=== PATIENT | female | born 1985 | race Caucasian/White ===

== ENCOUNTER 2016-10-17 19:07 | Observation (INO) | payer BC ==
[~2016-10-17 19:07] MED LIST: PREN29TA PO; ZANT150T2 PO; [UNRECOGNIZED DRUG - CODE]
[2016-10-17] MEDS: LACTATED RINGER'S 1000 ML INJ 1,000 ML IV SCH (20:06)
[2016-10-17] MEDS ORDERED: ACETAMINOPHEN 325 MG TAB PO PRN (20:15)
[2016-10-17] MEDS ORDERED: SODIUM CHLORIDE 0.9% FLUSH 10 ML FLUSH IV FLUSH PRN (20:15)
[2016-10-17 20:33] VITALS: BP 100/53; PULSE 76
[2016-10-17 20:44] VITALS: RESP 18
[2016-10-17 20:45] VITALS: TEMP 98
[2016-10-17 20:51] LABS: AUTOMATED NEUTROPHIL # 7.9 TH/MM3 (1.8-7.7); BASOPHIL % 0.1 % (0.0-2.0); EOSINOPHIL % 0.3 % (0.0-4.0); HEMATOCRIT 31.9 % (35.0-46.0); HEMO FLAGS DIFF FINAL; LYMPH % 18.5 % (9.0-44.0); LYMPHOCYTE # 1.9 TH/MM3 (1.0-4.8); MEAN CELL VOLUME 89.1 FL (80.0-100.0); MEAN CORPUSCULAR HEMOGLOBIN 30.2 PG (27.0-34.0); MEAN CORPUSCULAR HGB CONC 33.9 % (32.0-36.0); MONO % 4.8 % (0.0-8.0); NEUT % 76.3 % (16.0-70.0); PLATELET COUNT 246 TH/MM3 (150-450); RED BLOOD COUNT 3.58 MIL/MM3 (4.00-5.30); WHITE BLOOD COUNT 10.4 TH/MM3 (4.0-11.0)
[2016-10-17] MEDS: SODIUM CHLORIDE 0.9% FLUSH 10 ML FLUSH IV FLUSH SCH (21:00)
[2016-10-17 21:05] LABS: BACTERIA, URINE RARE /hpf; BLOOD, URINE NEG (NEG); GLUCOSE,URINE NEG (NEG); KETONE, URINE NEG (NEG); MUCUS URINE FEW /lpf (OCC); NITRITE,URINE NEG (NEG); SQUAMOUS EPITHELIAL CELL URINE <1 /hpf (0-5); URINE COLOR YELLOW (YELLW/STRAW)
--- NOTE | 2016-10-17 21:05 | PD ---
HPI Chief Complaint contractions Date Seen: October 17, 2016 Travel History International Travel<30 Days: No Contact w/Intl Traveler<30Days: No Known Affected Area: No History of Present Illness HPI This is a 31y/o at 36w2d who presented to the [facility] with reports of contractions since 530p q 2-3 minutes apart, since arrival the contractions are q 7-10m apart. She denies vaginal bleeding or leakage of fluid with reports of active movements. Fetus is currently breech, she is scheduled for a ECV on 10/22. care complicated by: 1. Breech presenting fetus 2. h/o GDM in the last 3. Varicella non-immune Para: 1 : 2 Last Menstrual Period: October 17, 2016 History Past Medical History Medical History: Denies Significant Hx Obstetric History Obstetric History 11/14/12 39w Male [id number] Past Surgical History Surgical History: No Previous Surgery Family History Family History: Negative Social History Alcohol Use: No Tobacco Use: No Substance Abuse: No Allergies-Medications (Allergen,Severity, Reaction): Coded Allergies: No Known Allergies (Verified , 10/16/16) Home Meds Active Scripts Ranitidine (Zantac)150 Mg [id number] Mg PO BID #60 TAB Ref 6 Prov:Nannette WilhelmP 09/18/16 Simply[employer] Breast Pump/Dual 1 Mis Mis #1 EA .ROUTE DIRECTED Ref 0 Prov:Elvira Laguerre [facility] 07/23/16 W/O Vit A W/ Fe Carbo (Prenate Mini 18-0.6-0.4-350 mg)1 Cap Cap Sample #2 Prov:Elvira Laguerre [facility] 04/03/16 Reported Medications Vit-Iron Carbonyl ( Plus Iron 29-1 mg)1 Tab Tab1 Tab PO DAILY #30 TAB Ref 0 04/04/16 Review of Systems Except as stated in HPI: all other systems reviewed are Neg Physical Exam Vital Signs Date Time Temp Pulse Resp B/P Pulse Ox O2 Delivery O2 Flow Rate FiO2 10/17/16 20:44 18 10/17/16 20:33 76 100/53 Narrative GENERAL: Well-nourished, well-developed patient. SKIN: Warm and dry. HEAD: Normocephalic and atraumatic. EYES: No scleral icterus. No injection or drainage. ENT: No nasal drainage noted. Mucous membranes pink. Airway patent. NECK: Supple, trachea midline. No JVD. CARDIOVASCULAR: Regular rate and rhythm without murmurs, gallops, or rubs. RESPIRATORY: Breath sounds equal bilaterally. No accessory muscle use. BREASTS: Bilateral exam showed no masses , no retractions, no nipple discharge. ABDOMEN/GI: Abdomen soft, non-tender, bowel sounds present, no rebound, no guarding Gravid to 36 GENITOURINARY: VE: 1/50/-3/posterior Contractions: none FHT's: Category: overall Cat 1, 4 minutes deceleration with jamar to 50bpm, noted after patient came back from the bathroom, subsequent reflexive tachycardia Bedside us: active fetus, BREECH EXTREMITIES: No cyanosis or edema. BACK: Nontender without obvious deformity. No CVA tenderness. NEUROLOGICAL: Awake and alert. Motor and sensory grossly within normal limits. Five out of 5 muscle strength in all muscle groups. Normal speech. Data Data Orders Place In Observation (10/17/16 ) Diet Npo (10/18/16 Breakfast) Vital Signs (Adult) EILEEN.O2K-RAKEO AWAKE (10/17/16 20:06) Heart (10/17/16 20:06) Activity Bed Rest With Brp (10/17/16 20:06) Complete Blood Count With Diff (10/17/16 20:06) Urinalysis - C+S If Indicated (10/17/16 20:06) Lactated Ringer's 1000 Ml Inj (Lr 1000 M (10/17/16 20:06) Acetaminophen (Tylenol) (10/17/16 20:15) Yjgmlzpy-Zfi-Rcgkw-Iron Prenat (Stuartna (10/18/16 09:00) Sodium Chloride 0.9% Flush (Ns Flush) (10/17/16 21:00) Sodium Chloride 0.9% Flush (Ns Flush) (10/17/16 20:15) Hold Clot (10/17/16 20:06) Ob (2e) Additional Admit Info (10/17/16 20:07) Us Ob Bpp Wo Nst (10/17/16 ) Labs Laboratory Tests Test 10/17/16 20:30 White Blood Count 10.4 Red Blood Count 3.58 Hemoglobin 10.8 Hematocrit 31.9 Mean Corpuscular Volume 89.1 Mean Corpuscular Hemoglobin 30.2 Mean Corpuscular Hemoglobin 33.9 Concent Red Cell Distribution Width 14.0 Platelet Count 246 Mean Platelet Volume 8.5 Neutrophils (%) (Auto) 76.3 Lymphocytes (%) (Auto) 18.5 Monocytes (%) (Auto) 4.8 Eosinophils (%) (Auto) 0.3 Basophils (%) (Auto) 0.1 Neutrophils # (Auto) 7.9 Lymphocytes # (Auto) 1.9 Monocytes # (Auto) 0.5 Eosinophils # (Auto) 0.0 Basophils # (Auto) 0.0 CBC Comment DIFF FINAL Differential Comment MDM Medical Record Reviewed: Yes Interpretation(s) 31y/o at 36w2d with 4 minute FHR prolonged decelration with jamar to 50bpm. -Breech presenting fetus, scheduled for version on 10/22 Plan -Admit for OBS overnight for continuous monitoring -NPO -BPP in AM Diagnosis Diagnosis: Primary Impression: Non-reassuring electronic monitoring tracing Additional Impressions: Breech presentation on examination Qualified Code: O32.1XX0 - Breech presentation on examination, not applicable or unspecified fetus 36 weeks gestation of Suzie Raymond MD October 17, 2016 21:05
[2016-10-17 21:08] LABS: COMMENT (UR) CULT NOT INDICATED; CULTURE IF INDICATED CULT NOT INDICATED
--- NOTE | 2016-10-17 21:29 | HHI.HP ---
HPI Chief Complaint contractions Date Seen: October 17, 2016 Travel History International Travel<30 Days: No Contact w/Intl Traveler<30Days: No Known Affected Area: No History of Present Illness HPI This is a 31y/o at 36w2d who presented to the [facility] with reports of contractions since 530p q 2-3 minutes apart, since arrival the contractions are q 7-10m apart. She denies vaginal bleeding or leakage of fluid with reports of active movements. Fetus is currently breech, she is scheduled for a ECV on 10/22. care complicated by: 1. Breech presenting fetus 2. h/o GDM in the last 3. Varicella non-immune Para: 1 : 2 History Past Medical History Medical History: Denies Significant Hx Obstetric History Obstetric History 11/14/12 39w Male [id number] Past Surgical History Surgical History: No Previous Surgery Family History Family History: Negative Social History Alcohol Use: No Tobacco Use: No Substance Abuse: No Allergies-Medications (Allergen,Severity, Reaction): Coded Allergies: No Known Allergies (Verified , 10/16/16) Home Meds Active Scripts Ranitidine (Zantac)150 Mg [id number] Mg PO BID #60 TAB Ref 6 Prov:Nannette Wilhelm [facility] 09/18/16 [employer] Breast Pump/Dual 1 Mis Mis #1 EA .ROUTE DIRECTED Ref 0 Prov:Elvira Laguerre CN[facility] 07/23/16 W/O Vit A W/ Fe Carbo (Prenate Mini 18-0.6-0.4-350 mg)1 Cap Cap Sample #2 Prov:Elvira Laguerre CN[facility] 04/03/16 Reported Medications Vit-Iron Carbonyl ( Plus Iron 29-1 mg)1 Tab Tab1 Tab PO DAILY #30 TAB Ref 0 04/04/16 Review of Systems Except as stated in HPI: all other systems reviewed are Neg Physical Exam Vital Signs Date Time Temp Pulse Resp B/P Pulse Ox O2 Delivery O2 Flow Rate FiO2 10/17/16 20:44 18 10/17/16 20:33 76 100/53 Narrative GENERAL: Well-nourished, well-developed patient. SKIN: Warm and dry. HEAD: Normocephalic and atraumatic. EYES: No scleral icterus. No injection or drainage. ENT: No nasal drainage noted. Mucous membranes pink. Airway patent. NECK: Supple, trachea midline. No JVD. CARDIOVASCULAR: Regular rate and rhythm without murmurs, gallops, or rubs. RESPIRATORY: Breath sounds equal bilaterally. No accessory muscle use. BREASTS: Bilateral exam showed no masses , no retractions, no nipple discharge. ABDOMEN/GI: Abdomen soft, non-tender, bowel sounds present, no rebound, no guarding Gravid to 36 GENITOURINARY: VE: 1/50/-3/posterior Contractions: none FHT's: Category: overall Cat 1, 4 minutes deceleration with jamar to 50bpm, noted after patient came back from the bathroom, subsequent reflexive tachycardia Bedside us: active fetus, BREECH EXTREMITIES: No cyanosis or edema. BACK: Nontender without obvious deformity. No CVA tenderness. NEUROLOGICAL: Awake and alert. Motor and sensory grossly within normal limits. Five out of 5 muscle strength in all muscle groups. Normal speech. Data Data Vital Signs Reviewed: Yes Orders Place In Observation (10/17/16 ) Diet Npo (10/18/16 Breakfast) Vital Signs (Adult) EILEEN.N0Y-UJOSH AWAKE (10/17/16 20:06) Heart (10/17/16 20:06) Activity Bed Rest With Brp (10/17/16 20:06) Complete Blood Count With Diff (10/17/16 20:06) Urinalysis - C+S If Indicated (10/17/16 20:06) Lactated Ringer's 1000 Ml Inj (Lr 1000 M (10/17/16 20:06) Acetaminophen (Tylenol) (10/17/16 20:15) Fjthzakl-Xql-Xpseg-Iron Prenat (Stuartna (10/18/16 09:00) Sodium Chloride 0.9% Flush (Ns Flush) (10/17/16 21:00) Sodium Chloride 0.9% Flush (Ns Flush) (10/17/16 20:15) Hold Clot (10/17/16 20:06) Ob (2e) Additional Admit Info (10/17/16 20:07) Us Ob Bpp Wo Nst (10/17/16 ) Labs Laboratory Tests Test 10/17/16 20:30 White Blood Count 10.4 Red Blood Count 3.58 Hemoglobin 10.8 Hematocrit 31.9 Mean Corpuscular Volume 89.1 Mean Corpuscular Hemoglobin 30.2 Mean Corpuscular Hemoglobin 33.9 Concent Red Cell Distribution Width 14.0 Platelet Count 246 Mean Platelet Volume 8.5 Neutrophils (%) (Auto) 76.3 Lymphocytes (%) (Auto) 18.5 Monocytes (%) (Auto) 4.8 Eosinophils (%) (Auto) 0.3 Basophils (%) (Auto) 0.1 Neutrophils # (Auto) 7.9 Lymphocytes # (Auto) 1.9 Monocytes # (Auto) 0.5 Eosinophils # (Auto) 0.0 Basophils # (Auto) 0.0 CBC Comment DIFF FINAL Differential Comment Urine Color YELLOW Urine Turbidity CLEAR Urine pH 6.0 Urine Specific [place] 1.023 Urine Protein TRACE Urine Glucose (UA) NEG Urine Ketones NEG Urine Occult Blood NEG Urine Nitrite NEG Urine Bilirubin NEG Urine Urobilinogen LESS THAN 2.0 Urine Leukocyte Esterase NEG Urine RBC 1 Urine WBC 1 Urine Squamous Epithelial <1 Cells Urine Bacteria RARE Urine Mucus FEW Microscopic Urinalysis Comment CULT NOT INDICATED Band and Hold HOLD CLOT IN BB Assessment/Plan Problem List: (1) Non-reassuring electronic monitoring tracing Assessment and Plan 31y/o at 36w2d with 4 minute FHR prolonged decelration with jamar to 50bpm. -no evidence of PTL -Breech presenting fetus, scheduled for version on 10/22 Plan -Admit for OBS overnight for continuous monitoring -NPO -BPP in Suzie Raymond MD October 17, 2016 21:29
[2016-10-17 23:54] VITALS: RESP 18
[2016-10-17 23:58] VITALS: BP 101/49; PULSE 71; TEMP 97.8
[2016-10-18] MEDS ORDERED: ONDANSETRON HCL 4 MG/2 ML VIAL IV PUSH PRN (01:30)
[2016-10-18 01:32] VITALS: BP 113/52; PULSE 68; RESP 18; TEMP 98.2
[2016-10-18 05:43] VITALS: BP 100/61; PULSE 68
[2016-10-18 05:45] VITALS: RESP 18
[2016-10-18] MEDS: LACTATED RINGER'S 1000 ML INJ 1,000 ML IV SCH (05:46)
[2016-10-18 07:56] VITALS: RESP 20; TEMP 97.9
[2016-10-18 07:57] VITALS: BP 103/49; PULSE 77
[2016-10-18] MEDS: SODIUM CHLORIDE 0.9% FLUSH 10 ML FLUSH IV FLUSH SCH (09:00)
[2016-10-18] MEDS ORDERED: MULTIVIT/MIN/PREN/FOL AC/IRON PRENATAL TAB PO SCH (09:00)
--- NOTE | 2016-10-18 09:40 | PD.OB.ANTE ---
Subjective Diagnosis: (1) Non-reassuring electronic monitoring tracing Interval History 31y/o at 36w2d with 4 minute FHR prolonged deceleration with jamar to 50bpm. Overnight she was on continuous monitoring, active fetus, no decelerations, category 1 tracing. BPP this morning 01/07, KRISHAN 12.07, fetus in breech position. Version scheduled for 10/21 at 1pm, instructions given. Pt seen and examined this morning. AFVSS. She endorses movement, denies leakage of fluid, vaginal bleeding, abdominal pain, contractions. Objective Vital Signs Vital Signs Date Time Temp Pulse Resp B/P Pulse Ox O2 Delivery O2 Flow Rate FiO2 10/18/16 07:57 77 103/49 10/18/16 07:56 97.9 20 10/18/16 05:45 18 10/18/16 05:43 68 100/61 10/18/16 01:32 98.2 68 18 113/52 10/17/16 23:58 97.8 71 101/49 10/17/16 23:54 18 10/17/16 20:45 98.0 10/17/16 20:44 18 10/17/16 20:33 76 100/53 Lab & Micro Results Test 10/17/16 20:30 White Blood Count 10.4 TH/MM3 Red Blood Count 3.58 MIL/MM3 Hemoglobin 10.8 GM/DL Hematocrit 31.9 % Mean Corpuscular Volume 89.1 FL Mean Corpuscular Hemoglobin 30.2 PG Mean Corpuscular Hemoglobin 33.9 % Concent Red Cell Distribution Width 14.0 % Platelet Count 246 TH/MM3 Mean Platelet Volume 8.5 FL Neutrophils (%) (Auto) 76.3 % Lymphocytes (%) (Auto) 18.5 % Monocytes (%) (Auto) 4.8 % Eosinophils (%) (Auto) 0.3 % Basophils (%) (Auto) 0.1 % Neutrophils # (Auto) 7.9 TH/MM3 Lymphocytes # (Auto) 1.9 TH/MM3 Monocytes # (Auto) 0.5 TH/MM3 Eosinophils # (Auto) 0.0 TH/MM3 Basophils # (Auto) 0.0 TH/MM3 CBC Comment DIFF FINAL Differential Comment Urine Color YELLOW Urine Turbidity CLEAR Urine pH 6.0 Urine Specific [place] 1.023 Urine Protein TRACE mg/dL Urine Glucose (UA) NEG mg/dL Urine Ketones NEG mg/dL Urine Occult Blood NEG Urine Nitrite NEG Urine Bilirubin NEG Urine Urobilinogen LESS THAN 2.0 MG/DL Urine Leukocyte Esterase NEG Urine RBC 1 /hpf Urine WBC 1 /hpf Urine Squamous Epithelial <1 /hpf Cells Urine Bacteria RARE /hpf Urine Mucus FEW /lpf Microscopic Urinalysis Comment CULT NOT INDICATED Band and Hold HOLD CLOT IN BB Physical Exam GENERAL: Well-nourished, well-developed patient. CARDIOVASCULAR: Regular rate and rhythm without murmurs, gallops, or rubs. RESPIRATORY: Breath sounds equal bilaterally. No accessory muscle use. ABDOMEN/GI: Abdomen soft, non-tender. GENITOURINARY: External Genitalia: intact and normal in appearance Dilatation: 1 Effacement: 50% Station: -3 Presentation: Breech Membranes: Intact Uterine Contractions: absent FHT's: Category: 1 Baseline: 140 Reactive: + Variability: Moderate Decels: Absent EXTREMITIES: No cyanosis or edema, non-tender, without signs of DVT. Assessment and Plan Problem List: (1) Non-reassuring electronic monitoring tracing Status: Acute Assessment and Plan 31y/o at 36w3d with 4 minute FHR prolonged deceleration with jamar to 50bpm on 10/17. -Breech presenting fetus, scheduled for version on 10/[address] Lewis -Category 1 tracing, no additional prolonged decelerations overnight -no evidence of PTL -BPP 8/, KRISHAN 12.07 -AC: <5%, Overall 22% -Continue routine care Jeison Sanchez MD R2 October 18, 2016 09:40
--- NOTE | 2016-10-18 09:58 | HHI.DCPOC ---
Discharge Care Plan Diagnosis: (1) Breech presentation (2) Non-reassuring electronic monitoring tracing Report Symptoms to Your Doctor -Temperate above 100.5 degrees -Redness, of incision or excessive or foul smelling drainage -Unusual pain or calf pain -Increased vaginal bleeding -Painful or difficulty urinating -Feelings of extreme sadness or anxiety after 2 weeks Goals to Promote Your Health * To prevent worsening of your condition and complications * To maintain your health at the optimal level Directions to Meet Your Goals Take your medications as prescribed Follow your dietary instruction Follow activity as directed Ensure plenty of rest for recovery Drink fluids for hydration Keep your appointments as scheduled Take your immunizations and boosters as scheduled If your symptoms worsen call your PCP, if no PCP go to Urgent Care Center or Emergency Room Smoking is Dangerous to Your Health. Avoid second hand smoke Call the 24-hour crisis hotline for domestic abuse at Jeison Sanchez MD R2 October 18, 2016 09:58
== END 2016-10-18 11:00 | disposition home or self-care (01) ==
LOC: HOBED 19:07 → H2EA 20:08
PROVIDERS: ADMIT Obstetrics & Gynecology; ATTEND Obstetrics & Gynecology
DX: O32.1XX0 Maternal care for breech presentation, not applicable or unspecified (principal); O76 Abnormality in fetal heart rate and rhythm complicating labor and delivery; Z3A.36 36 weeks gestation of pregnancy; Z86.32 Personal history of gestational diabetes
CPT/HCPCS: 59025; 76815; 76816; 76819; 81001; 85025; 99284; G0378; J7120

== ENCOUNTER 2016-10-21 10:54 | Observation (INO) | payer BC ==
--- NOTE | 2016-10-21 11:32 | HHI.HP ---
HPI Chief Complaint Patient here for version Date Seen: October 21, 2016 Time Seen: 11:29 Travel History International Travel<30 Days: No Contact w/Intl Traveler<30Days: No Known Affected Area: No History of Present Illness HPI Patient is a 31-year-old who is at 37 weeks today based on an EDC of November 11, 2016, here for external cephalic version. Patient was noted to have a breech presentation was scheduled for the version and she wishes to have the possibility of a vaginal delivery given her successful history of a prior vaginal delivery. Patient has No complaints today at this time she was monitored on October 17 for some contractions overnight but was sent home the next day cervix at that time was 1 cm. Para: 1 : 2 History Past Medical History Medical History: Denies Significant Hx Obstetric History Obstetric History Spontaneous vaginal delivery 2013 delivery of a male child 6 lbs. 11 oz. Past Surgical History Surgical History: No Previous Surgery Family History Family History: Negative Social History Alcohol Use: No Tobacco Use: No Substance Abuse: No Allergies-Medications (Allergen,Severity, Reaction): Coded Allergies: No Known Allergies (Verified , 10/16/16) Home Meds Active Scripts Ranitidine (Zantac)150 Mg [id number] Mg PO BID #60 TAB Ref 6 Prov:Nannette Wilhelm 09/18/16 [employer] Breast Pump/Dual 1 Mis Mis #1 EA .ROUTE DIRECTED Ref 0 Prov:Elvira Laguerre [facility] 07/23/16 W/O Vit A W/ Fe Carbo (Prenate Mini 18-0.6-0.4-350 mg)1 Cap Cap Sample #2 Prov:Elvira Laguerre [facility] 04/03/16 Reported Medications Vit-Iron Carbonyl ( Plus Iron 29-1 mg)1 Tab Tab1 Tab PO DAILY #30 TAB Ref 0 04/04/16 Review of Systems Except as stated in HPI: all other systems reviewed are Neg Physical Exam Narrative GENERAL: Well-nourished, well-developed patient. SKIN: Warm and dry. HEAD: Normocephalic and atraumatic. CARDIOVASCULAR: Regular rate and rhythm without murmurs, gallops, or rubs. RESPIRATORY: Breath sounds equal bilaterally. No accessory muscle use. ABDOMEN/GI: Abdomen soft, non-tender, bowel sounds present, no rebound, no guarding Gravid to [-36] weeks size Fundal Height: [-] GENITOURINARY: External Genitalia: intact and normal in appearance BUS glands: [-] Deferred Cervix: [-] Dilatation: [-] Effacement: [-] Station: [-] Presentation: [-] By ultrasound the baby is in a complete breech presentation, with an KRISHAN of 9 Membranes: [intact or ruptured] intact Uterine Contractions: [-] None FHT's: Category: [1-] Baseline: [-130] Reactive: [Moderate-] Variability: [-Moderate] Decels: [-Absent] EXTREMITIES: No cyanosis or edema. BACK: Nontender without obvious deformity. No CVA tenderness. NEUROLOGICAL: Awake and alert. Motor and sensory grossly within normal limits. Five out of 5 muscle strength in all muscle groups. Normal speech. Data Data Vital Signs Reviewed: Yes Assessment/Plan Assessment and Plan I discussed external cephalic version with the patient and her in detail after performing an ultrasound to document complete breech presentation and normal amniotic fluid index. heart rate was category 1 tracing with a baseline of 140 some mild irritability noted but no contractions. Patient was consented for external cephalic version understands the possibilities of trauma to the , initiation of labor, injury to the placenta, injury to the umbilical cord, and placental separation, rupture membranes. Patient states that she will be given terbutaline and fentanyl and attempts to mary the patient would be followed by monitoring. After terbutaline and fentanyl were given attempts at external cephalic version were accomplished using ultrasound guidance and we were unable to pull the breech out of the pelvis although the upper body and the head were easily amenable to movement. heart rate was stable throughout procedure and the version was not successful. Patient will be followed for the next hour with heart rate monitoring and will be set up for section at greater than or equal to 39 weeks gestation. Waleska Lewis MD October 21, 2016 11:32
[2016-10-21] MEDS ORDERED: LACTATED RINGER'S 1000 ML INJ 1,000 ML IV SCH (11:43)
[2016-10-21] MEDS ORDERED: TERBUTALINE INJ 1 MG/ML AMP SQ ONE (11:45)
--- NOTE | 2016-10-21 13:56 | HHI.DCPOC ---
Discharge Care Plan Diagnosis: (1) Breech presentation (2) Third trimester Report Symptoms to Your Doctor -Temperate above 100.5 degrees -Redness, of incision or excessive or foul smelling drainage -Unusual pain or calf pain -Increased vaginal bleeding -Painful or difficulty urinating -Feelings of extreme sadness or anxiety after 2 weeks Goals to Promote Your Health * To prevent worsening of your condition and complications * To maintain your health at the optimal level Directions to Meet Your Goals Take your medications as prescribed Follow your dietary instruction Follow activity as directed Ensure plenty of rest for recovery Drink fluids for hydration Keep your appointments as scheduled Take your immunizations and boosters as scheduled If your symptoms worsen call your PCP, if no PCP go to Urgent Care Center or Emergency Room Smoking is Dangerous to Your Health. Avoid second hand smoke Call the 24-hour crisis hotline for domestic abuse at Jeison Sanchez MD R2 October 21, 2016 13:56
== END 2016-10-21 15:00 | disposition home or self-care (01) ==
LOC: H2EB 10:54
PROVIDERS: ADMIT Obstetrics & Gynecology Obstetrics; ATTEND Obstetrics & Gynecology Obstetrics
DX: O32.1XX0 Maternal care for breech presentation, not applicable or unspecified (principal); Z3A.37 37 weeks gestation of pregnancy
CPT/HCPCS: 59412; G0378; J3010; J3105; 59025; 76815; 99283

== ENCOUNTER 2016-10-30 12:48 | Inpatient (IN) | payer BC ==
[~2016-10-30] VITALS: Ht 162.6 cm; Wt 76.2 kg
[2016-11-07] VITALS (7 sets, daily range): BP systolic 119–136; BP diastolic 56–89; PULSE 75–89; RESP 16; TEMP 97.7–98.7; O2SAT 99–100
[2016-11-07] MEDS ORDERED: CITRIC ACID-SODIUM CITRATE LIQ 30 ML UDC PO SCH ×2 (06:30→09:45)
[2016-11-07] MEDS ORDERED: LACTATED RINGER'S 1000 ML IV SCH ×2 (06:30)
[2016-11-07] MEDS ORDERED: LACTATED RINGER'S 1000 ML IV ONE (06:30)
[2016-11-07] MEDS ORDERED: ceFAZolin 2 GM PREMIX 50 ML IV SCH ×2 (06:30→09:15)
[2016-11-07 07:22] LABS: AUTOMATED NEUTROPHIL # 5.1 TH/MM3 (1.8-7.7); BASOPHIL % 0.3 % (0.0-2.0); EOSINOPHIL % 0.6 % (0.0-4.0); HEMATOCRIT 32.2 % (35.0-46.0); HEMO FLAGS DIFF FINAL; LYMPH % 29.8 % (9.0-44.0); LYMPHOCYTE # 2.4 TH/MM3 (1.0-4.8); MEAN CORPUSCULAR HEMOGLOBIN 29.4 PG (27.0-34.0); MONO % 6.2 % (0.0-8.0); NEUT % 63.1 % (16.0-70.0); PLATELET COUNT 242 TH/MM3 (150-450); RED BLOOD COUNT 3.62 MIL/MM3 (4.00-5.30); RED CELL DISTRIBUTION WIDTH 14.1 % (11.6-17.2); WHITE BLOOD COUNT 8.1 TH/MM3 (4.0-11.0)
[2016-11-07 07:24] LABS: BACTERIA, URINE FEW /hpf; BLOOD, URINE NEG (NEG); COMMENT (UR) CULT NOT INDICATED; CULTURE IF INDICATED CULT NOT INDICATED; GLUCOSE,URINE NEG (NEG); KETONE, URINE NEG (NEG); MUCUS URINE MANY /lpf (OCC); NITRITE,URINE NEG (NEG); SQUAMOUS EPITHELIAL CELL URINE 2 /hpf (0-5); URINE COLOR YELLOW (YELLW/STRAW)
[2016-11-07] MEDS ORDERED: ePHEDrine/NS 25 MG/5 ML SYR ONE (08:06)
[2016-11-07] MEDS ORDERED: LACTATED RINGER'S 1000 ML INJ 1,000 ML IV ONE (08:06)
[2016-11-07] MEDS ORDERED: OXYTOCIN 10 UNIT/ML AMP ONE (08:06)
[2016-11-07] MEDS ORDERED: MORPHINE SULFATE PF 5 MG/10 ML VIAL ONE (08:06)
[2016-11-07] MEDS ORDERED: ONDANSETRON HCL 4 MG/2 ML VIAL ONE (08:06)
--- NOTE | 2016-11-07 08:14 | HHI.HP ---
HPI Chief Complaint Patient here for attempted version if failed will perform CS Date Seen: Nov 07, 2016 Time Seen: 07:50 Travel History International Travel<30 Days: No Contact w/Intl Traveler<30Days: No Known Affected Area: No History of Present Illness HPI 31 yo breech infant for version if unsucessful for CS Para: 1 : 2 History Past Medical History Medical History: Denies Significant Hx Obstetric History Obstetric History x1 Past Surgical History Surgical History: No Previous Surgery Family History Family History: Negative Social History Alcohol Use: No Tobacco Use: No Substance Abuse: No Allergies-Medications (Allergen,Severity, Reaction): Coded Allergies: No Known Allergies (Verified , 10/30/16) Home Meds Active Scripts Simply[employer] Breast Pump/Dual 1 Mis Mis #1 EA .ROUTE DIRECTED Ref 0 Prov:Elvira Laguerer CNM [facility] 07/23/16 Reported Medications Vit-Iron Carbonyl ( Plus Iron 29-1 mg)1 Tab Tab1 Tab PO DAILY #30 TAB Ref 0 04/04/16 Discontinued Scripts Ranitidine (Zantac)150 Mg [id number] Mg PO BID #60 TAB Ref 6 Prov:Nannette WilhelmP 09/18/16 W/O Vit A W/ Fe Carbo (Prenate Mini 18-0.6-0.4-350 mg)1 Cap Cap Sample #2 Prov:Elvira Laguerre CNM [facility] 04/03/16 Review of Systems Except as stated in HPI: all other systems reviewed are Neg Physical Exam Narrative GENERAL: Well-nourished, well-developed patient. SKIN: Warm and dry. HEAD: Normocephalic and atraumatic. EYES: No scleral icterus. No injection or drainage. ENT: No nasal drainage noted. Mucous membranes pink. Airway patent. NECK: Supple, trachea midline. No JVD. CARDIOVASCULAR: Regular rate and rhythm without murmurs, gallops, or rubs. RESPIRATORY: Breath sounds equal bilaterally. No accessory muscle use. BREASTS: Bilateral exam showed no masses , no retractions, no nipple discharge. ABDOMEN/GI: Abdomen soft, non-tender, bowel sounds present, no rebound, no guarding Gravid to [-] weeks size Fundal Height: [-] GENITOURINARY: External Genitalia: intact and normal in appearance BUS glands: [-] Cervix: [-] Dilatation: 2 Effacement: [-] Station: [-] Presentation: [-] Membranes: [intact Uterine Contractions: [-] FHT's: Category:1 Baseline: [-] Reactive: [-] Variability: [-] Decels: [-] EXTREMITIES: No cyanosis or edema. BACK: Nontender without obvious deformity. No CVA tenderness. NEUROLOGICAL: Awake and alert. Motor and sensory grossly within normal limits. Five out of 5 muscle strength in all muscle groups. Normal speech. Data Data Vital Signs Reviewed: Yes Orders Lactated Ringer's 1000 Ml Inj (Lr 1000 M (11/07/16 06:30) Lactated Ringer's 1000 Ml Inj (Lr 1000 M (11/07/16 06:30) Citric Acid-Sodium Citrate Liq (Bicitra (11/07/16 06:30) Cefazolin 2 Gm Premix (Ancef 2 Gm Premix (11/07/16 06:30) Lactated Ringer's 1000 Ml Inj (Lr 1000 M (11/07/16 06:30) Complete Blood Count With Diff (11/07/16 06:56) Type And Screen (11/07/16 06:56) Urinalysis - C+S If Indicated (11/07/16 06:56) Morphine Pf Inj (Duramorph Pf 0.5 Mg/Ml (11/07/16 08:06) Ephedrine/Ns 25 Mg/5 Ml Syr (Ephedrine/N (11/07/16 08:06) Ondansetron Inj (Zofran Inj) (11/07/16 08:06) Oxytocin Inj (Pitocin Inj) (11/07/16 08:06) Fentanyl Inj (Fentanyl Inj) (11/07/16 08:07) Admit To Inpatient (11/07/16 ) Code Status (11/07/16 08:06) Vital Signs (Adult) .ON ADMISSION (11/07/16 08:06) Activity Oob Ad Kendra (11/07/16 08:06) Heart (11/07/16 08:06) Urinary Catheter Management EILEEN.Q8H (11/07/16 08:06) ^ Preps (11/07/16 08:06) Scd / Abraham / Foot Pump EILEEN.QSHIFT (11/07/16 08:06) ^ Ultrasound For Locatio (11/07/16 08:06) Diet Npo (11/07/16 Breakfast) Lactated Ringer's 1000 Ml Inj (Lr 1000 M (11/07/16 08:06) Lactated Ringer's 1000 Ml Inj (Lr 1000 M (11/07/16 08:36) Cefazolin 2 Gm Premix (Ancef 2 Gm Premix (11/07/16 09:15) Citric Acid-Sodium Citrate Liq (Bicitra (11/07/16 09:45) Inpatient Certification (11/07/16 ) Labs Laboratory Tests Test 11/07/16 11/07/16 06:30 06:40 Urine Color YELLOW Urine Turbidity HAZY Urine pH 6.0 Urine Specific [place] 1.024 Urine Protein TRACE Urine Glucose (UA) NEG Urine Ketones NEG Urine Occult Blood NEG Urine Nitrite NEG Urine Bilirubin NEG Urine Urobilinogen LESS THAN 2.0 Urine Leukocyte Esterase MOD Urine RBC 2 Urine WBC 5 Urine Squamous Epithelial 2 Cells Urine Bacteria FEW Urine Mucus MANY Microscopic Urinalysis Comment CULT NOT INDICATED White Blood Count 8.1 Red Blood Count 3.62 Hemoglobin 10.6 Hematocrit 32.2 Mean Corpuscular Volume 89.0 Mean Corpuscular Hemoglobin 29.4 Mean Corpuscular Hemoglobin 33.0 Concent Red Cell Distribution Width 14.1 Platelet Count 242 Mean Platelet Volume 8.4 Neutrophils (%) (Auto) 63.1 Lymphocytes (%) (Auto) 29.8 Monocytes (%) (Auto) 6.2 Eosinophils (%) (Auto) 0.6 Basophils (%) (Auto) 0.3 Neutrophils # (Auto) 5.1 Lymphocytes # (Auto) 2.4 Monocytes # (Auto) 0.5 Eosinophils # (Auto) 0.0 Basophils # (Auto) 0.0 CBC Comment DIFF FINAL Differential Comment Blood Type A POSITIVE Antibody Screen NEGATIVE Assessment/Plan Problem List: (1) Breech presentation (2) 39 weeks gestation of Discharge Planning for CS if version fails Jayy Deshpande MD Nov 07, 2016 08:14
--- NOTE | 2016-11-07 08:17 | HHI.PR ---
Subjective Remarks patient had attempted version 2 weeks ago and now repeat attempt was unsucessful. She has agreed for CS Objective Result Diagram: 11/07/16 0640 Assessment and Plan Problem List: (1) 39 weeks gestation of Status: Acute (2) Breech presentation Status: Acute (3) Breech presentation, no version Status: Acute Jayy Deshpande MD Nov 07, 2016 08:17
[2016-11-07] MEDS ORDERED: LACTATED RINGER'S 1000 ML INJ 1,000 ML IV SCH (08:36)
[2016-11-07] MEDS ORDERED: OXYTOCIN 30 UNITS-500ML PREMIX 500 ML IV ONE (09:15)
[2016-11-07] MEDS ORDERED: KETOROLAC TROMETHAMINE 60 MG/2 ML (IM) VIAL IM PRN (09:15)
[2016-11-07] MEDS ORDERED: SIMETHICONE 80 MG CHEWABLE TAB PO PRN (09:15)
[2016-11-07] MEDS ORDERED: SODIUM CHLORIDE 0.9% FLUSH 10 ML FLUSH IV FLUSH PRN (09:15)
--- NOTE | 2016-11-07 09:15 | PD.OB.DELI ---
Procedure Note Section Procedure Pre Op Diagnosis: (1) 39 weeks gestation of (2) Breech presentation, no version Post Op Diagnosis: (1) 39 weeks gestation of (2) Breech presentation, no version Performed by Jayy Deshpande Procedure: Primary Low Transverse Sec Indication for delivery: malposition Informed consent obtained: For anesthesia, For procedure Confirmed correct: Patient, Procedure, Time-out taken Anesthesia: Spinal Urinary catheter: Inserted using sterile technique, To dependent drainage Sterile preparation: Duraprep Position: Supine with wedge to right side Operative Features Skin Incision: Pfannenstiel Uterine Incision: Low transverse w/knife / blunt ext Membranes Ruptured: Artificially Presentation: Occiput anterior Delivery of infant: Uneventful : Male, Single One Minute : 8 Five Minute : 9 Weight: 6# 15 oz Status of : Viable Medications: Antibiotics Estimated blood loss: 500 Procedure tolerated: Well Maternal Condition: Stable Condition: Stable Jayy Deshpande MD Nov 07, 2016 09:15
[2016-11-07] MEDS ORDERED: OXYTOCIN 30 UNITS-500ML PREMIX 500 ML ONE (09:38)
[2016-11-07] MEDS ORDERED: ACETAMINOPHEN 1000 MG/100 ML VIAL IV ONE (09:39)
[2016-11-07] MEDS ORDERED: HYDROmorphone HCL PF 2 MG/ML VIAL ONE (10:17)
[2016-11-07] MEDS ORDERED: KETOROLAC TROMETHAMINE 30 MG/ML (IVP) VIAL ONE (10:19)
[2016-11-07] MEDS ORDERED: diphenhydrAMINE HCL 50 MG/ML VIAL IV PRN (13:45)
--- NOTE | 2016-11-07 14:14 | MP ---
cc: JULIANA DESHPANDE DATE OF SURGERY 11/07/2016 PROCEDURE Primary low transverse section. PREOPERATIVE DIAGNOSIS Breech, failed version, 39 weeks. POSTOPERATIVE DIAGNOSIS Breech, failed version, [address] Juliana Deshpande ESTIMATED BLOOD LOSS 500 cc. ANESTHESIA Spinal, Dr. Elmer Naranjo COMPLICATIONS None. FINDINGS Live male infant, marla breech presentation. PROCEDURE IN DETAIL After informed consent the patient taken to the operating room where she placed under spinal anesthesia, placed in supine position, left lateral tilt. Time-out was taken. After adequate anesthesia assured and the patient was prepped and draped a Pfannenstiel skin incision was carried sharply through the skin to the fascia. Fascia nicked in the midline. The incision was extended laterally using Maldonado scissors. Rectus muscles dissected off the fascia with sharp and blunt dissection. Rectus muscle in their midline. Peritoneum was entered bluntly with a finger. The incision was extended laterally using blunt traction. A bladder flap was created by dissecting bladder off the lower uterine segment. Bladder blade was replaced to protect the bladder. Low-transverse uterine incision was then made, carried sharply to the uterine cavity. Clear fluid was noted. Incision was extended laterally using blunt traction upward and downward. Hand was placed in the uterus and the 's buttocks was guided through the incision, using fundal pressure, the 's buttocks delivered up to the level where the legs were flexed across the chest and delivered. The was rotated to the right and left arm was flexed across the chest and delivered. The infant was rotated to the left and right arm was flexed across the chest and delivered. Marceau maneuver was performed and the head readily delivered. Nose and mouth suctioned well. Infant was not readily crying so a 45-second cord clamp delay was not performed but 30 seconds was attempted. We clamped, cut and tied and handed pediatrics in attendance. Cord blood was collected. Placenta was delivered manually. Uterus exteriorized, wiped free from all remaining products of conception. The uterine incision was then closed with a running locking stitch of chromic suture. A second imbricating layer was placed for strength and hemostasis. Uterus placed back in the abdomen, noted to be hemostatic. The perineum was closed with Vicryl suture. The fascia was closed with Vicryl suture. The skin was closed with subcuticular stitch. Each layer was noted to be hemostatic prior to closure and the patient tolerated the procedure well. MD KIRAN Viveros/VENKATA /9:19 AM /2:00 PM
[2016-11-07] MEDS: LACTATED RINGER'S 1000 ML INJ 1,000 ML IV SCH (15:26)
[2016-11-07] MEDS ORDERED: EPIDURAL-NALOXONE HCL 0.4 MG/ML AMP IV PRN (15:30)
[2016-11-07] MEDS ORDERED: EPIDURAL-DO NOT ADMINISTER ANTICOAGULANTS PRN (15:30)
[2016-11-07] MEDS ORDERED: EPIDURAL-DIPHENHYDRAMINE HCL 50 MG/ML VIAL IV PUSH PRN (15:30)
[2016-11-07] MEDS ORDERED: EPIDURAL-DIPHENHYDRAMINE HCL 50 MG CAP PO PRN (15:30)
[2016-11-07] MEDS ORDERED: EPIDURAL-NO SYSTEMIC NARCOTICS PRN (15:30)
[2016-11-07] MEDS: oxyCODONE/ACETAMINOPHEN 5 MG/325 MG TAB PO PRN ×2 (16:28→21:03)
[2016-11-07] MEDS: IBUPROFEN 600 MG TAB PO PRN ×2 (16:28→23:04)
[2016-11-07] MEDS ORDERED: OXYTOCIN 30 UNITS-500ML PREMIX 500 ML IV PRN (19:15)
[2016-11-07] MEDS ORDERED: SODIUM CHLORIDE 0.9% FLUSH 10 ML FLUSH IV FLUSH SCH (21:00)
[2016-11-08] MEDS: LACTATED RINGER'S 1000 ML INJ 1,000 ML IV SCH (00:12)
[2016-11-08] MEDS: oxyCODONE/ACETAMINOPHEN 5 MG/325 MG TAB PO PRN ×5 (01:35→20:36)
[2016-11-08] MEDS: IBUPROFEN 600 MG TAB PO PRN ×3 (05:19→20:36)
[2016-11-08 07:06] LABS: AUTOMATED NEUTROPHIL # 6.5 TH/MM3 (1.8-7.7); BASOPHIL % 0.2 % (0.0-2.0); EOSINOPHIL # 0.1 TH/MM3 (0-0.4); EOSINOPHIL % 0.6 % (0.0-4.0); HEMATOCRIT 26.1 % (35.0-46.0); HEMO FLAGS DIFF FINAL; LYMPH % 22.4 % (9.0-44.0); MEAN CELL VOLUME 89.4 FL (80.0-100.0); MEAN CORPUSCULAR HEMOGLOBIN 30.6 PG (27.0-34.0); MEAN CORPUSCULAR HGB CONC 34.3 % (32.0-36.0); NEUT % 71.8 % (16.0-70.0); PLATELET COUNT 163 TH/MM3 (150-450); RED BLOOD COUNT 2.92 MIL/MM3 (4.00-5.30); RED CELL DISTRIBUTION WIDTH 14.3 % (11.6-17.2); WHITE BLOOD COUNT 9.1 TH/MM3 (4.0-11.0)
--- NOTE | 2016-11-08 09:04 | HHI.OB ---
Subjective Post Day: 1 Remarks doing well pod #1 Objective Vitals/I&O Vital Signs Date Time Temp Pulse Resp B/P Pulse Ox O2 Delivery O2 Flow Rate FiO2 11/07/16 10:49 97.7 75 16 136/86 11/07/16 10:30 80 128/75 11/07/16 10:30 16 100 11/07/16 10:15 89 121/72 11/07/16 10:15 16 99 11/07/16 10:00 98.7 81 16 120/89 100 11/07/16 09:45 16 99 11/07/16 09:45 80 119/56 11/07/16 09:27 81 16 120/58 100 11/07/16 09:15 100 11/07/16 09:15 97.9 11/07/16 09:15 81 16 122/58 Objective Remarks GENERAL: Well-nourished, well-developed patient. ABDOMEN/GI: Abdomen soft, non-tender. Fundus: Firm, non-tender at umbilicus. GENITOURINARY: Light to moderate bleeding. EXTREMITIES: No cyanosis or edema, non-tender, without signs of DVT. Medications and IVs Current Medications Medications (Trade) Dose Ordered Sig/Eugenio Route Start Time Stop Time Status Last Admin (Lr 1000 ml Inj) 1,000 ml @ 100 mls/hr Q10H IV 11/07/16 14:12 11/08/16 10:11 11/07/16 15:26 (NS Flush) 2 ml BID IV FLUSH 11/07/16 21:00 (NS Flush) 2 ml UNSCH PRN IV FLUSH 11/07/16 09:15 (Mylicon Chew) 80 mg QID PRN PO 11/07/16 09:15 (Motrin) 600 mg Q6H PRN PO 11/07/16 09:15 11/08/16 05:19 (Toradol Inj) 30 mg Q6H PRN IM 11/07/16 09:15 11/08/16 09:14 (Percocet 5-325 Mg) 1 tab Q4H PRN PO 11/07/16 09:15 11/08/16 05:19 (Percocet 5-325 Mg) 2 tab Q4H PRN PO 11/07/16 09:15 (M-M-R Ii Inj) 0.5 ml ONCE ONCE SQ 11/08/16 16:00 11/08/16 16:01 (Boostrix Inj) 0.5 ml ONCE ONCE IM 11/08/16 16:00 11/08/16 16:01 (Benadryl Inj) 25 mg Q6H PRN IV 11/07/16 13:45 11/07/16 13:50 Miscellaneous Information NO SYSTEMIC NARCOTICS TO BE GIVEN FO... UNSCH PRN .XX 11/07/16 15:30 11/08/16 15:29 (Narcan Inj) 0.4 mg UNSCH PRN IV 11/07/16 15:30 11/08/16 15:29 (Benadryl Inj) 25 mg Q6H PRN IV PUSH 11/07/16 15:30 11/08/16 15:29 (Benadryl) 50 mg Q6H PRN PO 11/07/16 15:30 11/08/16 15:29 Miscellaneous Information ALL NURSING DEPARTMENTS UNSCH PRN .XX 11/07/16 15:30 11/08/16 15:29 Assessment/Plan Problem List: (1) Breech presentation (2) 39 weeks gestation of (3) Delivered by section Discharge Planning CS pod #1 Jayy Deshpande MD Nov 08, 2016 09:04
[2016-11-08] MEDS ORDERED: OXYC1TAB63 PO (09:06)
--- NOTE | 2016-11-08 09:06 | HHI.DCPOC ---
Discharge Care Plan Diagnosis: (1) Delivered by section Report Symptoms to Your Doctor -Temperature above 100.5 degrees -Redness, of incision or excessive or foul smelling drainage -Unusual pain or calf pain -Increased vaginal bleeding -Painful or difficulty urinating -Feelings of extreme sadness or anxiety after 2 weeks Goals to Promote Your Health * To prevent worsening of your condition and complications * To maintain your health at the optimal level Directions to Meet Your Goals Take your medications as prescribed Follow your dietary instruction Follow activity as directed Ensure plenty of rest for recovery Drink fluids for hydration Keep your appointments as scheduled Take your immunizations and boosters as scheduled If your symptoms worsen call your PCP, if no PCP go to Urgent Care Center or Emergency Room Smoking is Dangerous to Your Health. Avoid second hand smoke Call the 24-hour crisis hotline for domestic abuse at Jayy Deshpande MD Nov 08, 2016 09:06
[2016-11-08] MEDS: DIPHTH/TETANUS/ACEL PERTUSSIS (BOOSTER) 0.5 ML VIAL/PFS IM ONE ×2 (09:33→13:45)
[2016-11-08] MEDS ORDERED: MEASLES, MUMPS, RUBELLA VACCINE 0.5 ML VIAL SQ ONE (16:00)
[2016-11-09] MEDS: oxyCODONE/ACETAMINOPHEN 5 MG/325 MG TAB PO PRN ×6 (00:43→21:54)
[2016-11-09] MEDS: IBUPROFEN 600 MG TAB PO PRN ×3 (05:15→21:54)
[2016-11-09] MEDS: DOCUSATE SODIUM 50 MG/SENNA 8.6 MG TAB PO SCH (09:18)
--- NOTE | 2016-11-09 10:37 | HHI.OB ---
Subjective Post Operative Day: 2 Remarks Pt doing well, good pain control, ambulating well, tolerating po Objective Result Diagram: 11/08/16 0606 Objective Remarks GENERAL: Well-nourished, well-developed patient. CARDIOVASCULAR: Regular rate and rhythm without murmurs, gallops, or rubs. RESPIRATORY: Breath sounds equal bilaterally. No accessory muscle use. ABDOMEN/GI: Abdomen soft, non-tender, bowel sounds present. Incision: Clean, dry and intact. Fundus: Firm, non-tender at umbilicus. GENITOURINARY: Light to moderate bleeding. EXTREMITIES: No cyanosis or edema, non-tender, without signs of DVT. Medications and IVs Current Medications Medications (Trade) Dose Ordered Sig/Eugenio Route Start Time Stop Time Status Last Admin (NS Flush) 2 ml BID IV FLUSH 11/07/16 21:00 (NS Flush) 2 ml UNSCH PRN IV FLUSH 11/07/16 09:15 (Mylicon Chew) 80 mg QID PRN PO 11/07/16 09:15 (Motrin) 600 mg Q6H PRN PO 11/07/16 09:15 11/09/16 05:15 (Percocet 5-325 Mg) 1 tab Q4H PRN PO 11/07/16 09:15 11/08/16 05:19 (Percocet 5-325 Mg) 2 tab Q4H PRN PO 11/07/16 09:15 11/09/16 09:18 (Benadryl Inj) 25 mg Q6H PRN IV 11/07/16 13:45 11/07/16 13:50 (Estefania-Colace) 1 tab DAILY PO 11/09/16 09:00 11/09/16 09:18 Assessment/Plan Problem List: (1) Breech presentation (2) 39 weeks gestation of (3) Delivered by section Discharge Planning CS pod #1 Shy Downey MD Nov 09, 2016 10:37
[2016-11-10] MEDS: IBUPROFEN 600 MG TAB PO PRN ×2 (05:10→11:54)
[2016-11-10] MEDS: oxyCODONE/ACETAMINOPHEN 5 MG/325 MG TAB PO PRN ×2 (05:10→09:41)
[2016-11-10] MEDS: DOCUSATE SODIUM 50 MG/SENNA 8.6 MG TAB PO SCH (09:00)
--- NOTE | 2016-11-10 11:27 | HHI.DS ---
Admission Date Nov 07, 2016 at 06:13 Discharge Date: Nov 10, 2016 Admitting Diagnosis term breech presentation Diagnosis: : Primary : Male, Single Brief History 31 yo breech infant for version if unsucessful for CS Hospital Course routine post op course no complications Pt Condition on Discharge: Good Discharge Disposition: Discharge Home Discharge Instructions Diet Instructions: As Tolerated, No Restrictions Activities You Can Perform: Pelvic Rest Activities to Avoid: Sexual Activity Shy Downey MD Nov 10, 2016 11:27
== END 2016-11-10 13:15 | disposition home or self-care (01) | DRG 766 ==
LOC: H2EB 11-07 06:13 → H1EA 11-07 10:37
PROVIDERS: ADMIT Obstetrics & Gynecology; ATTEND Obstetrics & Gynecology
PROC: 10D00Z1 Extraction of Products of Conception, Low, Open Approach (ICD-10-PCS; principal; 2016-11-07)
DX: O32.1XX0 Maternal care for breech presentation, not applicable or unspecified (principal); Z3A.39 39 weeks gestation of pregnancy; Z37.0 Single live birth
CPT/HCPCS: 81001; 85025; 86850; 86900; 86901; J0131; J1170; J1200; J1885; J2274; J2405; J2590; J3010; J7120